=== PATIENT | female | born 1985 | race Caucasian/White ===

== ENCOUNTER 2017-05-04 06:08 | Emergency (ER) | payer SELFPAY ==
[2017-05-04 06:13] VITALS: TEMP 97.7
[2017-05-04] MEDS ORDERED: KETOROLAC 30 MG/1 ML SDV IVP ONE (06:27)
[2017-05-04] MEDS ORDERED: METOCLOPRAMIDE 10 MG/2 ML VIAL IVP ONE (06:27)
[2017-05-04] MEDS ORDERED: KETOROLAC 15 MG/1 ML SDV IVP ONE (06:29)
[2017-05-04] MEDS: NS 1,000 ML IV ONE ×2 (06:35→07:17)
--- NOTE | 2017-05-04 06:51 | EDPHY ---
H & P Stated Complaint: Migraine-10 hours. HPI/ROS: HPI CHIEF COMPLAINT: Headache times 10 hours HISTORY OF PRESENT ILLNESS: Patient is a very pleasant 31-year-old female she has significant past medical history for migraine headaches, she lives in [place] and has no primary care doctor. She has had a headache for over 10 hours. It is left-sided throbbing nature. No visual changes. She does have nausea but no vomiting. Denies neck pain denies fever. Denies stiff neck. Denies chest pain or shortness of breath. She states she gets migraine headaches due to stress. She has been very stressed recently. Headache is consistent with her typical migraine headache. Past Medical History: Migraine headaches, anxiety Past Surgical History: No recent surgery Social History: Denies daily use of drugs alcohol tobacco. Family History: Noncontributory ROS REVIEW OF SYSTEMS: A comprehensive 10 point review of systems is otherwise negative aside from elements mentioned in the history of present illness. Exam Constitutional appears well nontoxic, triage nursing summary reviewed, vital signs reviewed, awake/alert. Eyes normal conjunctivae and sclera, EOMI, PERRLA. HENT normal inspection, atraumatic, moist mucus membranes, no epistaxis, neck supple/ no meningismus, no raccoon eyes. Respiratory clear to auscultation bilaterally, normal breath sounds, no respiratory distress, no wheezing. Cardiovascular rate normal, regular rhythm, no murmur, no edema, distal pulses normal. Gastrointestinal soft, non-tender, no rebound, no guarding, normal bowel sounds, no distension, no pulsatile mass. Genitourinary no CVA tenderness. Musculoskeletal no midline vertebral tenderness, full range of motion, no calf swelling, no tenderness of extremities, no meningismus, good pulses, neurovascularly intact. Skin pink, warm, & dry, no rash, skin atraumatic. Neurologic awake, alert and oriented x 3, AAOx3, moves all 4 extremities equally, motor intact, sensory intact, CN II-XII intact, normal cerebellar, normal vision, normal speech. Psychiatric normal mood/affect. Heme/Lymph/Immune no lymphadenopathy. Differential Diagnosis: Includes but is not limited to in a particular order, migraine headache, tension headache, cluster headache, dehydration, acute anxiety, doubt intracranial bleed or meningitis. Medical Decision Making: Plan for this patient IV established with IV fluid bolus, migraine cocktail, IV Ativan for anxiety re-evaluate. Re-evaluation: 0745: Patient is feeling much better after IV medication. She is requesting be discharged home. She states her headache is resolved. Her neurological exam is unremarkable. She has no stiff neck or meningeal signs. She has no focal neuro deficit. Cranial nerves are intact. I do not feel that she needs imaging. She feels much better after migraine cocktail. She would like to go home. She has been given return precautions. She understands return emergency room she develops worsening symptoms includes worsening headache, fever, vomiting questions or concerns. Source: Patient - Personal History LMP (Females 10-55): 8-14 Days Ago Current Tetanus/Diphtheria Vaccine: Unsure Current Tetanus Diphtheria and Acellular Pertussis (TDAP): Unsure - Medical/Surgical History Hx Asthma: No Hx Chronic Respiratory Disease: No Hx Diabetes: No Hx Cardiac Disease: No Hx Renal Disease: No Hx Cirrhosis: No Hx Alcoholism: No Hx HIV/AIDS: No Hx Splenectomy or Spleen Trauma: No Other PMH: appy wisdom teeth. migraines. marijuana - Social History Smoking Status: Current every day smoker Constitutional: Initial Vital Signs Temperature (C) 36.5 C 05/04/17 06:10 Heart Rate 80 05/04/17 06:10 Respiratory Rate 18 05/04/17 06:10 Blood Pressure 136/93 H 05/04/17 06:10 O2 Sat (%) 95 05/04/17 06:10 O2 Delivery Mode Room Air O2 (L/minute) 2 Allergies/Adverse Reactions: divalproex sodium [From Depakote] Allergy (Verified 05/04/17 06:13) metoclopramide [From Reglan] Allergy (Verified 05/04/17 06:53) topiramate [From Topamax] Allergy (Verified 05/04/17 06:13) Home Medications: Medication Instructions Recorded Excedrin Extra Strength Caplet 05/04/17 Ibuprofen [Motrin (*)] 800 mg PO Q6-8PRN #14 tab 05/04/17 Medical Decision Making - Data Points Medications Given: Discontinued Medications Diphenhydramine HCl (Benadryl Injection) 50 mg IVP EDNOW ONE Stop: 05/04/17 06:28 Last Admin: 05/04/17 06:35 Dose: 50 mg Sodium Chloride (Ns) 1,000 mls @ 0 mls/hr IV ONCE ONE; Wide Open PRN Reason: Protocol Stop: 05/04/17 06:28 Last Admin: 05/04/17 07:17 Dose: 1,000 mls Sodium Chloride (Ns) 1,000 mls @ 0 mls/hr IV ONCE ONE PRN Reason: Wide Open Stop: 05/04/17 06:55 Last Admin: 05/04/17 07:19 Dose: 1,000 mls Ketorolac Tromethamine (Toradol) 15 mg IVP EDNOW ONE Stop: 05/04/17 06:30 Last Admin: 05/04/17 06:35 Dose: 15 mg Lorazepam (Ativan Injection) 1 mg IVP EDNOW ONE Stop: 05/04/17 06:55 Last Admin: 05/04/17 06:58 Dose: 1 mg Metoclopramide HCl (Reglan Injection) 10 mg IVP EDNOW ONE Stop: 05/04/17 06:28 Last Admin: 05/04/17 06:35 Dose: 10 mg Departure - Departure Disposition: Home, Routine, Self-Care Clinical Impression: Migraine headache Condition: Good Instructions: Migraine Headache (ED) Additional Instructions: 1.Please return emergency room if he develops worsening headache vomiting or fever. 2. Stay well-hydrated take it easy today. Referrals: Patient,NotPresent [Unknown] - As per Instructions Mahad Evans DO [Medical Doctor] - As per Instructions Prescriptions: Ibuprofen [Motrin (*)] 800 mg PO Q6-8PRN #14 tab
[2017-05-04] MEDS ORDERED: NS 1,000 ML IV ONE (06:54)
[2017-05-04] MEDS ORDERED: LORazepam 2 MG/ML INJ IVP ONE (06:54)
[2017-05-04] MEDS ORDERED: LORazepam 2 MG/ML INJ ONE (06:56)
[2017-05-04 07:56] VITALS: BP 103/63; PULSE 90; RESP 16; O2SAT 96
== END 2017-05-04 07:56 | disposition home or self-care (01) ==
PROC: 3E0337Z Introduction of Electrolytic and Water Balance Substance into Peripheral Vein, Percutaneous Approach (ICD-10-PCS; principal; 2017-05-04)
DX: G43.909 Migraine, unspecified, not intractable, without status migrainosus (principal); F17.200 Nicotine dependence, unspecified, uncomplicated; E86.9 Volume depletion, unspecified
CPT/HCPCS: 96374; J1200; J1885; J2060; J2765

== ENCOUNTER 2017-08-10 15:14 | Emergency (ER) | payer OTHER ==
[2017-08-10 15:19] VITALS: TEMP 98.6
--- NOTE | 2017-08-10 16:59 | EDPHY ---
H & P Time Seen by Provider: 08/10/17 16:13 HPI/ROS: CHIEF COMPLAINT: Right thumb injury HISTORY OF PRESENT ILLNESS: 31-year-old female presents to the emergency department with injury to her right thumb. The patient twisted the right thumb while she was at work earlier this afternoon. She denies any other trauma or injury. She is right-hand dominant. ROS: Denies numbness or tingling in her fingers, pain in the right wrist or elbow. Past Medical/Surgical History: Negative Social History: Single Smoking Status: Current every day smoker Constitutional: Initial Vital Signs Temperature (C) 37.0 C 08/10/17 15:17 Heart Rate 77 08/10/17 15:17 Respiratory Rate 16 08/10/17 15:17 Blood Pressure 122/87 H 08/10/17 15:17 O2 Sat (%) 98 08/10/17 15:17 O2 Delivery Mode Room Air Allergies/Adverse Reactions: divalproex sodium [From Depakote] Allergy (Verified 05/04/17 06:13) metoclopramide [From Reglan] Allergy (Verified 05/04/17 06:53) topiramate [From Topamax] Allergy (Verified 05/04/17 06:13) Home Medications: Medication Instructions Recorded NK [No Known Home Meds] 08/10/17 MDM/Departure - MDM Imaging Results: Imaging Impressions Finger X-Ray 08/10/17 16:24 Impression: No acute osseous findings. Procedures: Patient was placed in Velcro thumb spica splint and examined post application in good placement with normal CAN COVERER. ED Course/Re-evaluation: 31-year-old female presents to the emergency department with right thumb injury. X-rays reveal no fractures. Patient was placed in splint and given orthopedic referral. - Depart Disposition: Home, Routine, Self-Care Clinical Impression: Sprain of right thumb Qualifiers: Encounter type: initial encounter Sprain of finger site: unspecified site Qualified Code(s): S63.601A - Unspecified sprain of right thumb, initial encounter Condition: Good Instructions: Finger Sprain (ED) Additional Instructions: Splint for comfort and support. Ibuprofen 600 mg every 8 hr as needed for pain. Activity as tolerated. Stand Alone Forms: Work Comp Follow Up, Work Excuse Referrals: Ryder Emerson MD [Medical Doctor] - As per Instructions
[2017-08-10 17:25] VITALS: BP 138/91; PULSE 78; RESP 14; O2SAT 96
== END 2017-08-10 17:25 | disposition home or self-care (01) ==
DX: S63.601A Unspecified sprain of right thumb, initial encounter (principal); F17.200 Nicotine dependence, unspecified, uncomplicated; X50.9XXA Other and unspecified overexertion or strenuous movements or postures, initial encounter; Y99.0 Civilian activity done for income or pay; Y93.89 Activity, other specified
CPT/HCPCS: L3807